=== PATIENT | female | born 1955 ===

== ENCOUNTER → 2023-11-26 13:05 | Outpatient (CLI) | payer OTHER, SELFPAY ==
--- NOTE | ~2023-11-26 | MR_ITS ---
EXAMINATION: MR shoulder RT wo con DATE: 11/26/2023 13:43 INDICATION: Chronic right shoulder pain. TECHNIQUE: Magnetic resonance imaging (MRI) of the right shoulder was performed without intravenous c ontrast. Sequences included axial PD-weighted FS FSE, coronal oblique PD-weighted FS FSE and T2-weigh michelle FS FSE, and sagittal oblique T2-weighted FS FSE and T1-weighted FSE. COMPARISON: None. FINDINGS: Coracoacromial arch: The acromion undersurface is flat in morphology (type I). There is inferolateral tilt of the acromion . There is severe acromioclavicular joint osteoarthritis including inferiorly directed osteophytes. T here is mild subacromial/subdeltoid bursitis. Rotator cuff: There is severe tendinopathy of the junction of supraspinatus and infraspinatus tendons. Teres minor tendon is normal. There is mild subscapularis tendinopathy. There is no asymmetric fatty atrophy of t he rotator cuff muscle bellies. Biceps tendon and glenoid labrum: Biceps tendon is in bicipital groove. There is moderate intra-articular biceps tendinopathy. There is widespread tearing of the glenoid labrum. Fluid: There is a large glenohumeral joint effusion. Bones/cartilage: There is advanced glenohumeral joint osteoarthritis including bone volume loss of humeral head and gl enoid. IMPRESSION: 1. Advanced right glenohumeral joint osteoarthritis. 2. Severe acromioclavicular joint osteoarthritis. 3. Severe rotator cuff tendinopathy. No tear. 4. Moderate intra-articular biceps tendinopathy. 5. Large glenohumeral joint effusion. 6. Mild subacromial/subdeltoid bursitis. Reviewed, dictated and finalized at location E. [employer]
== END ==
PROVIDERS: PCP Family Medicine; Visit Provider Physician Assistant
DX: M19.011 Primary osteoarthritis, right shoulder (principal); M75.21 Bicipital tendinitis, right shoulder; M75.101 Unspecified rotator cuff tear or rupture of right shoulder, not specified as traumatic; M25.411 Effusion, right shoulder; M75.51 Bursitis of right shoulder; G89.29 Other chronic pain
CPT/HCPCS: 73221